=== PATIENT | male | born 1940 | race Caucasian/White ===

== ENCOUNTER 2024-10-19 13:30 | Outpatient (CLI) | payer MEDICARE ==
--- NOTE | 2024-10-19 14:24 | RADIOLOGY REPORT ---
EXAM: CT CT HEAD HISTORY: TRANSIENT CEREBRAL ISCHEMIC ATTACK, UNSPECIFIED COMPARISON: None TECHNIQUE: Axial images of the head were obtained and reformatted in coronal and sagittal planes. All CT scans at this medical facility are performed using dose modulation techniques as appropriate t o a performed exam including the following: Automated exposure control was utilized; adjustment of th e MA and/or KV according to patient size; and use of iterative reconstruction technique. CT Dose: CTDI volume is 60 mGy. Dose-length product is 10 15 mGy*cm FINDINGS: There is hypodense subdural fluid collection overlying the right frontal convexity measuring 8 mm in maximum diameter. There is no significant associated mass effect or midline shift. There is no evidence of acute intracranial hemorrhage or mass. There is no hydrocephalus. Munoz-white matter differentiation is maintained. The visualized paranasal sinuses and mastoid air cells are clear. The calvarium is intact. IMPRESSION: 1. 8 mm hypodense subdural fluid collection overlying the right frontal convexity may represent chron ic subdural hematoma versus hygroma. There is no significant associated mass effect or midline shift. HS:Y
== END 2024-10-19 23:59 | disposition home or self-care (01) ==
LOC: RAD 13:30
PROVIDERS: ATTEND Internal Medicine
DX: G45.9 Transient cerebral ischemic attack, unspecified (principal)
CPT/HCPCS: 70450